=== PATIENT | female | born 1955 | race Caucasian/White ===

== ENCOUNTER 2021-03-29 08:11 | Day surgery (SDC) | payer MEDICARE ==
[2021-03-29] MEDS ORDERED: Sodium Chloride 0.9(Preservative Free) 10 ML IJ ONE (08:12)
[2021-03-29] MEDS ORDERED: Depo-Medrol 40 MG/ML IM ONE (08:12)
[2021-03-29] MEDS ORDERED: DIPRIVAN 200 MG/20 ML IV ONE (09:32)
--- NOTE | 2021-03-29 12:38 | XRAY ---
Indication: Caudal SHERI. Intraoperative fluoroscopy provided for 1 minute 22 seconds. 2 digital spot image submitted for interpretation demonstrates caudal posterior needle tip projecting mid sacrum. Small amount of contrast injected for needle tip placement. Correlate with intraoperative findings/report. Incidental incompletely visualized lower lumbar fusion hardware.
--- NOTE | 2021-03-29 13:21 | XRAY ---
1 minute and 22 seconds fluoroscopy time in surgery for caudal SHERI.
[2021-03-29] MEDS ORDERED: Lactated Ringers 1,000 ML IV ONE (15:52)
== END 2021-03-29 10:40 | disposition home or self-care (01) ==
LOC: SDC-PAIN 08:11
PROVIDERS: ATTEND Psychiatry & Neurology Pain Medicine
DX: M54.16 Radiculopathy, lumbar region (principal); E11.9 Type 2 diabetes mellitus without complications; Z79.899 Other long term (current) drug therapy
CPT/HCPCS: 62323; 72100; 77003; 82947; J1030; J2704; Q9966

== ENCOUNTER 2021-05-24 09:12 | Day surgery (SDC) | payer MEDICARE ==
[2021-05-24] MEDS ORDERED: Depo-Medrol 40 MG/ML IM ONE (09:13)
[2021-05-24] MEDS ORDERED: Sodium Chloride 0.9(Preservative Free) 10 ML IJ ONE (09:13)
[2021-05-24] MEDS ORDERED: Lactated Ringers 1,000 ML IV ONE (10:39)
[2021-05-24] MEDS ORDERED: DIPRIVAN 200 MG/20 ML IV ONE (10:43)
--- NOTE | 2021-05-24 12:08 | XRAY ---
Indication: Caudal SHERI. Intraoperative fluoroscopy provided for 20 seconds. Single digital spot image submitted for interpretation demonstrates posterior caudal needle tip projecting mid sacrum. Small amount of contrast injected for needle tip placement. Correlate with intraoperative findings/report. Incidental incompletely visualized lumbosacral fusion hardware.
--- NOTE | 2021-05-24 12:51 | XRAY ---
20 seconds fluoroscopy time in surgery for caudal SHERI.
== END 2021-05-24 11:10 | disposition home or self-care (01) ==
LOC: SDC-PAIN 09:12
PROVIDERS: ATTEND Psychiatry & Neurology Pain Medicine
DX: M54.16 Radiculopathy, lumbar region (principal); E11.9 Type 2 diabetes mellitus without complications; Z79.899 Other long term (current) drug therapy
CPT/HCPCS: 62323; 72020; 77003; 82947; J1030; J2704; Q9966

== ENCOUNTER 2022-01-10 09:18 | Day surgery (SDC) | payer MEDICARE ==
[2022-01-10] MEDS ORDERED: Depo-Medrol 40 MG/ML IM ONE (09:19)
[2022-01-10] MEDS ORDERED: Sodium Chloride 0.9(Preservative Free) 10 ML IJ ONE (09:19)
[2022-01-10] MEDS ORDERED: DIPRIVAN 200 MG/20 ML IV ONE (12:21)
[2022-01-10] MEDS ORDERED: Lactated Ringers 1,000 ML IV ONE (13:30)
--- NOTE | 2022-01-10 13:34 | XRAY ---
Indication: Caudal SHERI. Intraoperative fluoroscopy provided for 19 seconds. 4 digital spot image submitted for interpretation demonstrates caudal needle tip projecting mid sacrum. Small amount of contrast injected for needle tip placement. Correlate with intraoperative findings/report. Incidental incompletely visualized bilateral lumbosacral junction fusion hardware.
--- NOTE | 2022-01-10 13:36 | XRAY ---
19 seconds of fluoroscopy was used in surgery for a caudal SHERI.
== END 2022-01-10 12:46 | disposition home or self-care (01) ==
LOC: SDC-PAIN 09:18
PROVIDERS: ATTEND Psychiatry & Neurology Pain Medicine
DX: M54.16 Radiculopathy, lumbar region (principal); E11.9 Type 2 diabetes mellitus without complications; Z79.899 Other long term (current) drug therapy
CPT/HCPCS: 62323; 72220; 77002; 82947; J1030; J2704; Q9966